=== PATIENT | male | born 1995 | race American Indian/Alaskan Native ===

== ENCOUNTER 2019-08-23 09:08 | Emergency (ER) | payer SELFPAY ==
[2019-08-23 09:15] VITALS: BP 127/86
--- NOTE | 2019-08-23 09:48 | XRay Report ---
XR wrist 3+V RT INDICATION / CLINICAL INFORMATION: pain after fall. COMPARISON: None available. FINDINGS: BONES/JOINT(S): There is a nondisplaced avulsion fracture of the tip of the ulnar styloid. There is n o other acute fracture. No significant degenerative changes. SOFT TISSUES: No significant abnormality. ADDITIONAL FINDINGS: None. Signer Name: Blas Barros MD Signed: 08/23/2019 9:44 AM Workstation Name: [id number]
--- NOTE | 2019-08-23 11:37 | Emergency Department Report ---
Upper Extremity - [facility] Chief Complaint: Extremity Injury, Upper Stated Complaint: POSS (R) WRIST FRACTION Time Seen by Provider: 08/23/19 11:34 Upper Extremity: Right Wrist Occurred When: 1 Day Mechanism: Fall Severity: moderate Symptoms: Yes Pain with Movement, Yes Limited Range of Movement, Yes Swelling, Yes Bruising/Ecchymosis, Yes Laceration or Abrasion, No Deformity, No Numbness, No Weakness Other History: Patient is a 24-year-old right-hand dominant male, with no chronic medical conditions, presenting to the ER with medial right wrist tendinitis after sports related injury, sustained 3 days ago, he tackled someone, and thinks that he may have landed on his wrist. He also has right lateral wrist injury. Pain is aching and throbbing, increases with palpation and decreases with rest. He has no severe headache, no neck pain, no chest pain, abdominal pain, shortness of breath, and no weakness and/or numbness. He does a lot of heavy lifting for work. He hasn't really taken anything [id number]. ED Review of Systems ROS: Stated complaint: POSS (R) WRIST FRACTION Other details as noted in HPI ED Past Medical Hx - Past Medical History Previous Medical History?: No - Surgical History Past Surgical History?: No - Social History Smoking Status: Never Smoker Substance Use Type: None - Medications Home Medications: Home Medications Medication Instructions Recorded Confirmed Last Taken Type Acetaminophen [Non-Aspirin Extra 500 mg PO Q6HR PRN #30 tablet 08/23/19 Unknown Rx Strength] Ibuprofen [Motrin] 600 mg PO Q8H PRN #30 tablet 08/23/19 Unknown Rx Upper Extremity Exam - Exam General: Vital signs noted. No distress. Alert and acting appropriately. there is no facial droop. Tongue is midline. Extraocular movements are intact bilaterally. Walking with a steady gait. Speaking in full sentences. Normal appropriate thought content. 5 out of 5 strength in 4 extremities. Sensation is intact to light touch in 4 extremities. 2+ pulses noted in the bilateral upper and lower extremities. There is no long bony tenderness except as noted. The pelvis is stable. The muscular compart ments are soft. There is no palpable cord. There is no redness, pus or streaking. Right distal ulnar processes tender. Right snuffbox is tender. Thumb opposition and range of motion intact. Sensation intact to light touch deltoid, median, radial, ulnar distribution. Head and Torso: No HEENT Abnormality (Left-sided infraorbital abrasions noted. No step-offs or tenderness.), No Neck Tenderness, No Chest/Lungs Abnormality, No Abdominal Tenderness, No Back Tenderness Shoulder Exam: Yes Normal Range of Motion in Shoulder, No Shoulder Tenderness, No Clavicle Tenderness, No Shoulder Deformity, No AC Joint Tenderness Arm Exam: No Arm/Humerus Tenderness, No Arm Deformity Elbow: No Elbow Tenderness, No Normal Range of Motion in Elbow, No Elbow Deformity Forearm: No Forearm Tenderness, No Forearm Deformity, No Pain with Pronation, No Pain with Supination Wrist: Yes Normal ROM in Wrist, No Wrist Tenderness, No Wrist Deformity, No Snuffbox Tenderness, No Pain with Axial Thumb Compression Hand: Yes Hand Tenderness (there is right snuffbox tenderness, right ulnar tenderness), Yes Normal ROM in Digit(s), No Hand Deformity, No Digit Tenderness, No Digit(s) Deformity, No Tendon Dysfunction CMS Exam: No Broken Skin (left infraorbital abrasion), No Normal Distal Pulses, No Normal Capillary Refill, No Normal Distal Sensation ED Course Vital Signs 08/23/19 09:10 Temperature 97.4 F L Pulse Rate 67 Respiratory 16 Rate Blood Pressure 127/86 O2 Sat by Pulse 98 Oximetry ED Medical Decision Making - Radiology Data Radiology results: report reviewed, image reviewed Print Report Referring Physician: FEMI NAVA Patient Name: EDITA CATALAN Date of : 1995 Sex: Male Report Date: 2019-08-23 Report Status: Finalized Findings [address] [address] XRay Report Signed Patient: EDITA CATALAN MR#: [id number] : 1995 Acct:[id number] Age/Sex: 24 / M ADM Date: 08/23/19 Loc: ED Attending Dr: Ordering Physician: FEMI NAVA MD Date of Service: 08/23/19 Procedure(s): XR wrist 3+V RT Accession Number(s): [id number] cc: FEMI NAVA MD Fluoro Time In Minutes: XR wrist 3+V RT INDICATION / CLINICAL INFORMATION: pain after fall. COMPARISON: None available. FINDINGS: BONES/JOINT(S): There is a nondisplaced avulsion fracture of the tip of the ulnar styloid. There is no other acute fracture. No significant degenerative changes. SOFT TISSUES: No significant abnormality. ADDITIONAL FINDINGS: None. Signer Name: Blas Barros MD Signed: 08/23/2019 9:44 AM Workstation Name: [id number] Transcribed By: BURKE Dictated By: Blas Barros MD Electronically Authenticated By: Blas Barros MD Signed Date/Time: 08/23/19 0944 - Medical Decision Making Vital Signs 08/23/19 09:10 Temperature 97.4 F L Pulse Rate 67 Respiratory 16 Rate Blood Pressure 127/86 O2 Sat by Pulse 98 Oximetry Differential diagnosis, including but not limited to: Sprain, strain, fracture, dislocation Assessment and plan: 24-year-old gentleman, GCS 15, with right-sided wrist injury. He is afebrile with reassuring vital signs. He is clinically sober and reportedly up-to-date with tetanus vaccination status. X-ray of the right wrist is reviewed and appreciated. He is placed in a right wrist splint, pain medication as needed, he will need to follow up with outpatient orthopedics or hand surgery. Discussed this with patient, who verbalized understanding, return precautions are reviewed. Critical care attestation.: If time is entered above; I have spent that time in minutes in the direct care of this critically ill patient, excluding procedure time. ED Disposition Clinical Impression: Right wrist injury Disposition: DC-01 TO HOME OR SELFCARE Is pt being admited?: No Does the pt Need Aspirin: No Condition: Stable Instructions: Wrist Injury (ED) Additional Instructions: Keep the right arm wrist splint in place. Rest, avoid heavy lifting, and avoid strenuous physical activity. Patient may use the right hand for light tasks, and essential tasks, but otherwise, should avoid heavy lifting and strenuous physical activity, as well as sports. Take the pain medications as needed and directed, follow up with an orthopedist or hand surgeon within the next 5-7 days. Please return to emergency room right away with new, worsening or different sy mptoms, or symptoms not present on the initial emergency room evaluation. Referrals: KAMLESH MERINO MD [Staff Physician] - 3-5 Days [facility] [Provider Group] - 3-5 Days Forms: Work/School Release Form(ED)
[2019-08-23] MEDS ORDERED: IBUPROFEN 600 MG TAB PO ONE (11:42)
== END 2019-08-23 12:12 | disposition home or self-care (01) ==
LOC: ED 09:08
DX: S69.91XA Unspecified injury of right wrist, hand and finger(s), initial encounter (principal); Z79.899 Other long term (current) drug therapy; W50.0XXA Accidental hit or strike by another person, initial encounter; Y93.61 Activity, american tackle football; Y92.89 Other specified places as the place of occurrence of the external cause; Y99.8 Other external cause status

== ENCOUNTER 2019-09-05 12:03 | Emergency (ER) | payer SELFPAY ==
--- NOTE | 2019-09-05 12:53 | Emergency Department Report ---
Chief Complaint: Extremity Problem,Nontraumatic Stated Complaint: FX WRIST RT Time Seen by Provider: 09/05/19 12:50 - HPI History of Present Illness: Mr. Rm returns to ED for work clearance. Dx'd here 08/23/2019 with wrist curtis and ulnar styloid avulsion fracture. needs a return to work note. Unable to afford orthopedic surgeon evaluation. Wrist is "90%" healed. MSE performed and completed. MSE screening note: Focused history and physical exam performed. Due to findings the following was ordered: ED Disposition for MSE Clinical Impression: Right wrist injury Disposition: Z-07 MED SCREENING EXAM-LEFT Condition: Stable Forms: Work/School Release Form(ED)
[2019-09-05 14:38] VITALS: BP 105/63
== END 2019-09-05 13:00 | disposition left against medical advice (07) ==
LOC: ED 12:03
DX: S69.81XA Other specified injuries of right wrist, hand and finger(s), initial encounter (principal); X58.XXXA Exposure to other specified factors, initial encounter; Y93.89 Activity, other specified; Y92.89 Other specified places as the place of occurrence of the external cause; Y99.8 Other external cause status
CPT/HCPCS: 99282

== ENCOUNTER 2020-04-05 14:08 | Emergency (ER) | payer SELFPAY ==
[2020-04-05 14:22] VITALS: BP 118/65
[2020-04-05] MEDS ORDERED: DIPHtheria,PERTUSSIS(ACELL),TETANUS VACCINE/PF 0.5 ML VIAL IM ONE (17:33)
--- NOTE | 2020-04-05 18:14 | Emergency Department Report ---
ED Burn/Smoke HPI - General Chief complaint: Skin Rash Stated complaint: RIGHT ARM PAIN, STD Time Seen by Provider: 04/05/20 16:27 Source: patient Mode of arrival: Ambulatory Limitations: No Limitations - History of Present Illness Initial comments: This is a 25-year-old male nontoxic, well nourished in appearance, no acute signs of distress presents to the ED with c/o of right shoulder area some skin debridement status post fall while playing football. Patient denies any direct trauma to the shoulder. Patient stated had scraped it on the floor. Denies follow-up with a primary care doctor and stated this happened last week. Denies any fever, chills, nausea, vomiting, chest pain, shortness of breath, headache or stiff neck. Patient denies any other injuries or conditions. Patient denies being up-to-date with tetanus. Denies any allergies. -: week(s) (1) Smoke Inhalation: none Place: outdoors Location - Extremities: Right: Shoulder Severity: mild Severity scale (0 -10): 3 Associated Symptoms: denies other symptoms. denies: headache, vision changes, cough, diaphoresis, fever/chills, chest pain, flushing, neck pain, nausea/vomiting - Related Data Previous Rx's Medication Instructions Recorded Last Taken Type Acetaminophen [Non-Aspirin Extra 500 mg PO Q6HR PRN #30 tablet 08/23/19 Unknown Rx Strength] Ibuprofen [Motrin] 600 mg PO Q8H PRN #30 tablet 08/23/19 Unknown Rx Silver Sulfadiazine [Silvadene] 1,000 gm TP Q12H PRN 5 Days #1 04/05/20 Unknown Rx cream..g. Sulfamethoxazole/Trimethoprim 1 each PO BID #14 tablet 04/05/20 Unknown Rx [Bactrim DS TAB] Allergies Allergy/AdvReac Type Severity Reaction Status Date / Time No Known Allergies Allergy Verified 04/05/20 14:18 Burn HPI - History Stated Complaint: RIGHT ARM PAIN, STD Chief Complaint: Skin Rash Time Seen by Provider: 04/05/20 16:27 Symptoms:: - Home Meds and Allergies Home Medications: Previous Rx's Medication Instructions Recorded Last Taken Type Acetaminophen [Non-Aspirin Extra 500 mg PO Q6HR PRN #30 tablet 08/23/19 Unknown Rx Strength] Ibuprofen [Motrin] 600 mg PO Q8H PRN #30 tablet 08/23/19 Unknown Rx Silver Sulfadiazine [Silvadene] 1,000 gm TP Q12H PRN 5 Days #1 04/05/20 Unknown Rx cream..g. Sulfamethoxazole/Trimethoprim 1 each PO BID #14 tablet 04/05/20 Unknown Rx [Bactrim DS TAB] Allergies/Adverse Reactions: Allergies Allergy/AdvReac Type Severity Reaction Status Date / Time No Known Allergies Allergy Verified 04/05/20 14:18 ED Review of Systems ROS: Stated complaint: RIGHT ARM PAIN, STD Other details as noted in HPI Constitutional: denies: chills, fever Eyes: denies: eye pain, eye discharge, vision change ENT: denies: ear pain, throat pain Respiratory: denies: cough, shortness of breath, wheezing Cardiovascular: denies: chest pain, palpitations Endocrine: no symptoms reported Gastrointestinal: denies: abdominal pain, nausea, diarrhea Genitourinary: denies: urgency, dysuria Musculoskeletal: denies: back pain, joint swelling, arthralgia Skin: denies: rash, lesions Neurological: denies: headache, weakness, paresthesias Psychiatric: denies: anxiety, depression Hematological/Lymphatic: denies: easy bleeding, easy bruising ED Past Medical Hx - Past Medical History Previous Medical History?: No - Surgical History Past Surgical History?: No - Social History Smoking Status: Current Every Day Smoker Substance Use Type: None - Medications Home Medications: Home Medications Medication Instructions Recorded Confirmed Last Taken Type Acetaminophen [Non-Aspirin Extra 500 mg PO Q6HR PRN #30 tablet 08/23/19 Unknown Rx Strength] Ibuprofen [Motrin] 600 mg PO Q8H PRN #30 tablet 08/23/19 Unknown Rx Silver Sulfadiazine [Silvadene] 1,000 gm TP Q12H PRN 5 Days #1 04/05/20 Unknown Rx cream..g. Sulfamethoxazole/Trimethoprim 1 each PO BID #14 tablet 04/05/20 Unknown Rx [Bactrim DS TAB] ED Physical Exam - General Limitations: No Limitations General appearance: alert, in no apparent distress - Head Head exam: Present: atraumatic, normocephalic - Eye Eye exam: Present: normal appearance - Neck Neck exam: Present: normal inspection, full ROM. Absent: tenderness, meningismus, lymphadenopathy - Respiratory Respiratory exam: Absent: respiratory distress - Cardiovascular Cardiovascular Exam: Present: regular rate - Extremities Exam Extremities exam: Present: full ROM, tenderness (in the abrasion area), normal capillary refill. Absent: joint swelling, calf tenderness - Expanded Upper Extremity Exam Right General: Present: normal inspection Shoulder Exam: Present: full ROM, tenderness (in the abrasion area), abrasion (Right shoulder). Absent: swelling, laceration, ecchymosis, deformity, crepidus, dislocation, erythema, tenderness over AC joint Upper Arm exam: Present: normal inspection, full ROM. Absent: tenderness, swelling Elbow exam: Present: normal inspection, full ROM. Absent: tenderness, swelling Forearm Wrist exam: Present: normal inspection, full ROM. Absent: tenderness, swelling Hand Wrist exam: Present: normal inspection, full ROM. Absent: tenderness, swelling Vascular: Present: normal capillary refill. Absent: vascular compromise (Neurovascular within normal limits) - Back Exam Back exam: Present: normal inspection, full ROM. Absent: tenderness, paraspinal tenderness, vertebral tenderness - Neurological Exam Neurological exam: Present: alert, oriented X3, normal gait - Psychiatric Psychiatric exam: Present: normal affect, normal mood - Skin Skin exam: Present: warm, dry, intact, normal color. Absent: rash ED Course Vital Signs 04/05/20 14:20 Temperature 98.4 F Pulse Rate 56 L Respiratory 20 Rate Blood Pressure 118/65 O2 Sat by Pulse 98 Oximetry - Reevaluation(s) Reevaluation #1: 04/05/20 18:13 Patient is speaking in full sentences with no signs of distress noted. ED Medical Decision Making - Medical Decision Making 25-year-old male that presents with abrasion status post fall. Patient is stable and was examined by me. The area has been cleaned and sterilized. Silvadene has been applied with Xeroform and sterile dressing. Patient educated on proper wound care. Patient received tetanus booster in ER. Patient was instructed to follow-up with a primary care doctor in 3-5 days or if symptoms worsen and continue return to emergency room as soon as possible. At time of discharge, the patient does not seem toxic or ill in appearance. No acute signs of distress noted. Patient agrees to discharge treatment plan of care. No further questions noted by the patient. Critical care attestation.: If time is entered above; I have spent that time in minutes in the direct care of this critically ill patient, excluding procedure time. ED Disposition Clinical Impression: Abrasion shoulder/arm Qualifiers: Encounter type: initial encounter Laterality: right Qualified Code(s): S40.211A - Abrasion of right shoulder, initial encounter Disposition: TO HOME OR SELFCARE Is pt being admited?: No Does the pt Need Aspirin: No Condition: Stable Instructions: Acute Wound Care (ED) Additional Instructions: Follow-up with a primary care doctor in 3-5 days or if symptoms worsen and continue return to emergency room as soon as possible. Prescriptions: Sulfamethoxazole/Trimethoprim [Bactrim DS TAB] 1 each PO BID #14 tablet Silver Sulfadiazine [Silvadene] 1,000 gm TP Q12H PRN 5 Days #1 cream..g. PRN Reason: abrasion Referrals: PRIMARY CAREMD [Primary Care Provider] - 3-5 Days AYDEN VASQUEZ MD [Staff Physician] - 3-5 Days Forms: Work/School Release Form(ED)
== END 2020-04-05 19:00 | disposition home or self-care (01) ==
LOC: ED 14:08
DX: S40.211A Abrasion of right shoulder, initial encounter (principal); F17.200 Nicotine dependence, unspecified, uncomplicated; Z79.899 Other long term (current) drug therapy; X58.XXXA Exposure to other specified factors, initial encounter; Y93.89 Activity, other specified; Y92.89 Other specified places as the place of occurrence of the external cause; Y99.8 Other external cause status
CPT/HCPCS: 90471; 90715; 99282